=== PATIENT | male | born 1960 | race Hispanic/Latino ===

== ENCOUNTER → 2025-09-17 | Outpatient (CLI) | payer BC ==
--- NOTE | 2025-09-17 20:49 | HMCIMG ---
EXAM: US Arterial Bilateral Lower Extremity Duplex CLINICAL HISTORY: Peripheral vascular disease (PVD). TECHNIQUE: Real-time ultrasound scan of the arteries of the bilateral lower extremities with 2-D grayscale, color Doppler flow, and spectral waveform analysis. COMPARISON: None provided. FINDINGS: COMMON FEMORAL ARTERY: No occlusion or significant stenosis. Peak systolic velocities are within normal limits bilaterally (RT: 137 cm/sec, LT: 141 cm/sec). Waveforms are triphasic. SUPERFICIAL FEMORAL ARTERY: No occlusion or significant stenosis. Peak systolic velocities within normal limits (RT: 116???131 cm/sec, LT: 98???115 cm/sec). Waveforms are triphasic. POPLITEAL ARTERY: No occlusion or significant stenosis. Peak systolic velocities within normal limits (RT: 92???94 cm/sec, LT: 79???98 cm/sec). Waveforms are triphasic. CALF ARTERIES: No occlusion or significant stenosis. Velocities within normal limits (RT anterior tibial: 102 cm/sec, dorsalis pedis: 141 cm/sec; LT anterior tibial: 89 cm/sec, dorsalis pedis: 86 cm/sec). Waveforms are triphasic and biphasic. No abnormal monophasic waveforms identified. No evidence of flow-limiting stenosis, occlusion, or significant hemodynamic compromise in the bilateral lower extremity arteries. IMPRESSION: * Duplex arterial ultrasound of both lower extremities demonstrates no flow-limiting stenosis or occlusion , Mild atherosclerosis changes noted. * Triphasic and biphasic waveforms preserved throughout major arterial segments. /[place]
--- NOTE | 2025-09-17 20:49 | HMCIMG ---
STUDY: VENOUS DOPPLER ULTRASOUND OF THE BILATERAL LOWER EXTREMITIES CLINICAL INFORMATION: Peripheral vascular disease. TECHNIQUE: Grayscale, color Doppler, and spectral Doppler ultrasound evaluation of the deep venous systems of both lower extremities was performed. COMPARISON: None provided. FINDINGS: Deep venous system: No sonographic evidence of intraluminal thrombus in the visualized deep veins of either lower extremity. Veins demonstrate normal compressibility and color Doppler flow where evaluated, without abnormal intraluminal echogenicity. Lymph nodes: Bilateral inguinal lymph nodes are identified. On the right, nodes measure approximately 1.0 x 0.6 cm and 2.7 x 1.4 cm. On the left, nodes measure approximately 1.0 x 0.6 cm and 2.2 x 1.0 cm. No focal fluid collection is seen. Morphology is most compatible with reactive lymphadenopathy. IMPRESSION: * No sonographic evidence of deep venous thrombosis in either lower extremity. * Mildly enlarged bilateral inguinal lymph nodes (up to 2.7 x 1.4 cm on the right and 2.2 x 1.0 cm on the left), most likely reactive; correlate clinically. /[place]
== END | disposition home or self-care (01) ==
LOC: RAH 12:35
PROVIDERS: ATTEND Internal Medicine
DX: I73.9 Peripheral vascular disease, unspecified (principal); M25.471 Effusion, right ankle; M25.472 Effusion, left ankle; R60.0 Localized edema; R59.0 Localized enlarged lymph nodes
CPT/HCPCS: 93925; 93970